=== PATIENT | female | born 1945 | race Caucasian/White ===

== ENCOUNTER 2024-11-20 11:42 | Emergency (ER) | payer OTHER ==
[2024-11-20] MEDS ORDERED: Tdap Vaccine 0.5 ML SYR (Adult Vaccine) IM ONE (12:15)
[2024-11-20] MEDS ORDERED: Acetaminophen/Oxycodone 5 MG/325 MG TABLET PO ONE (12:15)
[2024-11-20] MEDS ORDERED: Ondansetron Hydrochloride 4 MG TAB PO ONE (12:20)
[2024-11-20] MEDS ORDERED: HYDROCODONE-AC1 EAC1 PO ×2 (14:51→15:03)
== END 2024-11-20 15:21 | disposition home or self-care (01) ==
LOC: ED 11:42
DX: S61.512A Laceration without foreign body of left wrist, initial encounter (principal); S61.511A Laceration without foreign body of right wrist, initial encounter; S22.42XA Multiple fractures of ribs, left side, initial encounter for closed fracture; S93.401A Sprain of unspecified ligament of right ankle, initial encounter; W50.0XXA Accidental hit or strike by another person, initial encounter; Y93.89 Activity, other specified; Y92.89 Other specified places as the place of occurrence of the external cause; Y99.8 Other external cause status

== ENCOUNTER 2024-12-12 10:35 | Emergency (ER) | payer OTHER ==
[~2024-12-12] VITALS: Ht 162.5 cm; Wt 102.1 kg
[~2024-12-12 10:35] MED LIST: HYDROCODONE-AC1 EAC1 PO
[2024-12-12] MEDS ORDERED: OMEPRAZOLE MAGN20 MG PO (11:03)
== END 2024-12-12 13:39 | disposition home or self-care (01) ==
LOC: ED 10:35
DX: S92.311A Displaced fracture of first metatarsal bone, right foot, initial encounter for closed fracture (principal); S20.212A Contusion of left front wall of thorax, initial encounter; R20.0 Anesthesia of skin; V49.9XXA Car occupant (driver) (passenger) injured in unspecified traffic accident, initial encounter; Y93.89 Activity, other specified; Y92.488 Other paved roadways as the place of occurrence of the external cause; Y99.8 Other external cause status